=== PATIENT | male | born 1955 | race Caucasian/White ===

== ENCOUNTER 2018-12-18 11:36 | Day surgery (SDC) | payer SELFPAY ==
[2018-12-11 10:17] VITALS: BP 157/89; PULSE 68; RESP 16; TEMP 36.8; O2SAT 97; BMI 35.9
--- NOTE | 2018-12-11 10:40 | SDCEKG_ITS ---
Test Reason : Blood Pressure : / mmHG Vent. Rate : 065 BPM Atrial Rate : 065 BPM P-R Int : 170 ms QRS Dur : 160 ms QT Int : 452 ms P-R-T Axes : 030 049 013 degrees QTc Int : 470 ms Normal sinus rhythm Right bundle branch block Cannot rule out Inferior infarct , age undetermined Abnormal ECG Confirmed by GLENNA JIMENEZ, BRUCE ([id number]), make up editor HORTENCIA BALL ([id number]) on 12/17/2018 2:49:17 PM Referred By: Marcial Estrada Confirmed By:BRUCE MANZANARES MD
[2018-12-11 11:03] LABS: Hematocrit 42.3 % (40-54); Hemoglobin 13.8 g/dL (13.0-16.5); Mean Corp Hgb Conc 32.6 g/dL (32-36); Mean Corpuscular Hgb 27.8 pg (27.0-32.0); Mean Corpuscular Volume 85.3 fL (80-94); Mean Platelet Vol. 9.4 fl (6.2-12.0); Platelet Count 365 K/mm3 (150-450); Red Blood Count 4.96 M/mm3 (4.6-6.2); White Blood Count 6.3 K/mm3 (4.4-11.0)
[2018-12-11 11:20] LABS: Anion Gap 6 (5-15); BUN 14 mg/dL (7-18); BUN/Creat Ratio 17.3 RATIO (10-20); Calcium,Total 9.2 mg/dL (8.5-10.1); Chloride 103 mmol/L (98-107); Creatinine, Serum 0.81 mg/dL (0.70-1.30); EST Glomerular Filtration Rate 102 mL/min (>60); Est Glom Filt Rate - Afr Amer 124 mL/min (>60); Estimated Creatinine Clearance 90.31 ml/min; Glucose 77 mg/dL (74-106); Potassium 3.9 mmol/L (3.5-5.1); Sodium Level 138 mmol/L (136-145)
[2018-12-18] VITALS (10 sets, daily range): BP systolic 124–148; BP diastolic 68–87; PULSE 58–70; RESP 12–18; TEMP 36.1–36.8; O2SAT 93–96; BMI 35.9
[2018-12-18] MEDS: Lactated Ringers 1,000 ML 100 ML IV ×2 (12:10→15:36)
--- NOTE | 2018-12-18 13:50 | PROS_PTH ---
PATIENT: NAIF MCCOY LOC: [facility] [place] U#:[id number] AGE/SX: 63/M ROOM: RE12/18/[address]: Dr. Marcial Estrada MD : 1955 BED: DIS: 12/19/2018 SPEC #: [id number] RECD: 12/18/18 15:22 STATUS: VERONICA REMaikel #: [id number] RAPHAEL: 12/18/18 13:[address]: Marcial Estrada DEPT: SURGICAL PATHOLOGY RECD BY: Leora Renee ENTERED: 12/19/18 09:59 SP TYPE: TURP OTHR DR: Dr. Ron Plata MD Tissues: Prostate, NOS Procedures: Surgery Specimen Level IV HEADER OPERATION: Cysto, TUR, prostate, [employer] PRE-OP DIAGNOSIS: Benign prostatic hypertrophy with lower urinary tract symptoms and urinary retention TISSUE SUBMITTED: Prostate tissue MICROSCOPIC DIAGNOSIS Prostate, transurethral resection: Benign nodular hyperplasia, glandular and stromal types. Mild chronic inflammation. AM:seth 12/20/18 MICROSCOPIC DESCRIPTION Slides are reviewed. GROSS DESCRIPTION Received is one container labeled with the patient's name and designated prostate tissue. The specimen consists of multiple irregular fragments of pink-ryan, rubbery, soft tissue that in aggregate weigh 14.4 gm and measure in aggregate 7 x 6 x 2.5 cm. 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 About 90% of the specimen is submitted / SJ:seth 12/19/18 TC:3 CPT: 12395
[2018-12-18] MEDS: Cefazolin 2 GM in 0.9% Normal Saline 100 ML IV (13:51)
--- NOTE | 2018-12-18 14:00 | DCINST_ITS ---
- Discharge Diagnoses Current Active Problems: bph with obstruction Reason(s) for Visit for Discharge Instructions: TURP You will use the following diet at home:: No restrictions Your food should be the consistency of: Regular Discharge Activity: Return to Normal Activity Return to work on:: 01/08/19 Lifting Restrictions: no lifting, no heavy activity Call your doctor if your incision/area has: Continuous Slow Oozing, Sudden Increased Bleeding, Increased Pain/ Swelling, Increased Redness, Foul Smelling Discharge, Swelling at the incision site Suture Line Care: Avoid Pulling/Pushing, Avoid Pinching/Bending Instructions: Transurethral Resection of the Prostate (TURP): Home Recovery Allergies/Adverse Reactions: Allergies No Known Allergies Allergy (Verified 12/18/18 11:54) Medications to take at Discharge Amlodipine [Norvasc] 10 mg PO DAILY 12/11/18 Tamsulosin HCl [Flomax] 0.4 mg PO QHS 12/11/18 Valsartan/Hydrochlorothiazide [Diovan Hct 160-25 mg Tablet] 1 ea PO DAILY 12/11/18 Acetaminophen [Tylenol Extra Strength] 500 mg PO Q4H PRN PRN #20 tab 12/18/18 Ciprofloxacin [Cipro] 500 mg PO BID #14 tab 12/18/18 Ibuprofen 600 mg PO Q6H PRN PRN #20 tab 12/18/18 The following prescriptions were given: Ciprofloxacin [Cipro] 500 mg PO BID #14 tab Transmission Status: Pending to [id number] Ibuprofen 600 mg PO Q6H PRN PRN #20 tab PRN Reason: Pain Score 1-10/10 Transmission Status: Pending to [id number] Acetaminophen [Tylenol Extra Strength] 500 mg PO Q4H PRN PRN #20 tab PRN Reason: Pain Score 1-10/10 Transmission Status: Pending to [facility] Primary Care Physician: Ron Plata [Primary Care Provider] - Test Results: Test results from this visit will be discussed in further detail at your follow- up appointment, if applicable. Please Follow Up With: Marcial Estrada MD When: 2 weeks Proposed Discharge Date: 12/18/18
--- NOTE | 2018-12-18 15:05 | PCM.OPRPT ---
Report of Operation Date of Procedure: 12/18/18 Pre-Operative Diagnosis: BPH with obstruction and urinary retention Post-Operative Diagnosis: Same Surgery/Procedure Performed:: Transurethral resection of the prostate Description of Surgical Findings:: 63-year-old male taken back to the operating room at this reduction of general anesthesia he was placed in dorsolithotomy position, the penis testicles were prepped and draped in usual fashion we removed the current catheter and went into the bladder with a 21 Nep[place]e rigid cystourethroscope on inspection he had a very large median lobe and bilateral hypertrophy with obstruction causing the retention of urine I then switched over to the 24 Nepalese non-continuous flow resectoscope and I resected the median lobe identified the right and left ureteral orifice ease were not injured I then resected the floor the prostate elevated the verumontanum and resected right lobe of the prostate elevated to the verumontanum left lobe the prostate of the verumontanum and then carefully resected the apical tissue and resected the roof of the prostate obtain hemostasis Ellik out all the chips after 1 hour of resection of the prostate the prostate was wide open did a flow test had a nice wide open flow obtain hemostasis and put a catheter in the bladder on continuous bladder irrigation patient was taken back to PACU in good condition. Type of Anesthesia:: General Drains: 3 way villanueva - Admit VTE Documentation VTE Present on Admission: No
[2018-12-18] MEDS: Ondansetron 4 MG/2 ML Vial IV (17:11)
[2018-12-18] MEDS: Ketorolac 15 MG/ML Vial IV (18:47)
[2018-12-18] MEDS: 0.9% Normal Saline 1,000 ML 125 ML IV (18:51)
[2018-12-18] MEDS: Tamsulosin HCl 0.4 MG Capsule PO (21:01)
[2018-12-18] MEDS: Ibuprofen 600 MG Tablet PO (21:01)
[2018-12-18] MEDS: Docusate Sodium 100 MG Capsule PO (21:02)
[2018-12-18] MEDS: Ciprofloxacin 500 MG Tablet PO (21:02)
[2018-12-19] MEDS: 0.9% Normal Saline 1,000 ML 125 ML IV (02:02)
[2018-12-19 02:37] VITALS: BP 106/58; PULSE 67; RESP 18; TEMP 36.7; O2SAT 97
[2018-12-19 05:44] LABS: Hematocrit 38.7 % (40-54); Hemoglobin 12.6 g/dL (13.0-16.5); Mean Corp Hgb Conc 32.6 g/dL (32-36); Mean Corpuscular Hgb 27.7 pg (27.0-32.0); Mean Corpuscular Volume 85.1 fL (80-94); Mean Platelet Vol. 9.7 fl (6.2-12.0); Platelet Count 290 K/mm3 (150-450); RBC Distribution Width CV 13.1 % (11.6-14.6); Red Blood Count 4.55 M/mm3 (4.6-6.2); White Blood Count 9.9 K/mm3 (4.4-11.0)
[2018-12-19] MEDS: Ketorolac 15 MG/ML Vial IV (05:48)
[2018-12-19 05:59] LABS: Anion Gap 7 (5-15); BUN 16 mg/dL (7-18); BUN/Creat Ratio 20.3 RATIO (10-20); Calcium,Total 8.8 mg/dL (8.5-10.1); Chloride 104 mmol/L (98-107); Creatinine, Serum 0.79 mg/dL (0.70-1.30); EST Glomerular Filtration Rate 106 mL/min (>60); Est Glom Filt Rate - Afr Amer 128 mL/min (>60); Estimated Creatinine Clearance 92.59 ml/min; Glucose 120 mg/dL (74-106); Potassium 3.8 mmol/L (3.5-5.1); Sodium Level 137 mmol/L (136-145)
[2018-12-19 09:02] VITALS: BP 125/62; PULSE 72; RESP 18; TEMP 36.4; O2SAT 92
[2018-12-19] MEDS: Docusate Sodium 100 MG Capsule PO (09:05)
[2018-12-19] MEDS: Pantoprazole Sodium 40 MG Tablet PO (09:05)
[2018-12-19] MEDS: amLODIPine 10 MG Tablet PO (09:05)
[2018-12-19] MEDS: Ciprofloxacin 500 MG Tablet PO (09:05)
[2018-12-19] MEDS: Losartan Potassium 50 MG Tablet PO (09:06)
[2018-12-19] MEDS: hydroCHLOROthiazide 25 MG Tablet PO (09:07)
[2018-12-19 12:08] VITALS: BP 137/59; PULSE 72
== END 2018-12-19 12:00 | disposition home or self-care (01) ==
LOC: SDC 11:44 → AC 11:45 → MS3 12-19 10:02
PROVIDERS: Anesthesiology; Family Provider Family Medicine; PCP Family Medicine; Referring Provider Urology; Visit Provider Urology
PROC: (CPT 52601; principal; 2018-12-18 13:35)
DX: N40.1 Benign prostatic hyperplasia with lower urinary tract symptoms (principal); N13.8 Other obstructive and reflux uropathy; R33.8 Other retention of urine; I10 Essential (primary) hypertension; H91.90 Unspecified hearing loss, unspecified ear; G47.30 Sleep apnea, unspecified; Z79.899 Other long term (current) drug therapy; Z87.891 Personal history of nicotine dependence
CPT/HCPCS: 00914; 52601; 36415; 80048; 85027; 88305; 93005; 99251; J7030; J7120; G0463; J2405